=== PATIENT | male | born 1995 | race African-American/Black ===

== ENCOUNTER 2016-12-31 19:58 | Emergency (ER) | payer OTHER ==
[~2016-12-31] VITALS: Ht 185.4 cm; Wt 104.3 kg
[2016-12-31 19:58] VITALS: BP 140/65
[2016-12-31] MEDS ORDERED: IBUPROFEN 600 MG TAB PO ONE (20:45)
[2016-12-31] MEDS ORDERED: AUGMENTIN 875 MG TAB PO ONE (20:45)
[2016-12-31] MEDS ORDERED: AUGM875T27 PO ×2 (20:46→21:05)
== END 2016-12-31 21:14 | disposition home or self-care (01) ==
LOC: M ED 20:49
DX: J02.0 Streptococcal pharyngitis (principal); K13.79 Other lesions of oral mucosa; Z88.2 Allergy status to sulfonamides

== ENCOUNTER 2017-02-08 15:40 | Emergency (ER) | payer OTHER ==
[~2017-02-08] VITALS: Ht 185.4 cm; Wt 109.6 kg
[~2017-02-08 15:40] MED LIST: AUGM875T28 PO
--- NOTE | 2017-02-08 18:00 | REP ---
Chest x-ray: Two views. History: Painful cough. Possibly inhale diesel fluid. . Comparison study: No comparison study . Findings: The lungs are well inflated and free of infiltrate. The pleural angles are sharp. The heart size is normal. Pulmonary vasculature is not increased. No significant bony abnormality is seen. Impression: Negative chest x-ray. Signed by Adam Mcadams MD 02/08/2017 05:50 P
[2017-02-08 18:06] VITALS: BP 135/63
--- NOTE | 2017-02-10 07:21 | ECGEPIP ---
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
== END 2017-02-08 18:17 | disposition home or self-care (01) ==
LOC: M ED 15:40
DX: K52.9 Noninfective gastroenteritis and colitis, unspecified (principal); Z77.098 Contact with and (suspected) exposure to other hazardous, chiefly nonmedicinal, chemicals; R05 Cough; Z88.1 Allergy status to other antibiotic agents; Z88.2 Allergy status to sulfonamides